=== PATIENT | female | born 1930 | race Caucasian/White ===

== ENCOUNTER 2016-09-23 21:10 | Emergency (ER) | payer MEDICARE, OTHER ==
--- NOTE | 2016-09-23 22:02 | CT ---
EXAM: NONCONTRAST HEAD CT 09/23/16 HISTORY: Fall. Contusion. COMPARISON: None. TECHNIQUE: Noncontrast head CT is performed in the axial plane. Sagittal and coronal reformatted images are sub mitted for interpretation. FINDINGS: Limited evaluation by motion degradation. Left frontal temporal scalp hematoma. Calvarium is intact. Adequate aeration of the sinuses and mastoid air cells. Cavernous carotid atherosclerosis. No parenchymal hemorrhage. No extra-axial hematoma. No midline shift. Prominence of the ventricular system, greater than expected for degree of atrophy. Correlate for nor mal pressure hydrocephalus. White matter hypodensities are presumed to be due to chronic small vesse l ischemic change. Transependymal flow of CSF could not be completely excluded. Grossly, cortical gr ay-white matter differentiation is preserved. IMPRESSION: 1. Scalp hematoma. No calvarial fracture. Prominence of the ventricular system, greater than ex pected for degree of atrophy. Correlate for normal pressure hydrocephalus. 2. White matter hypodensities which are presumed to be due to chronic small vessel ischemic patricia nge. Transependymal flow of CSF could not be completely excluded. 3. Limited evaluation due to motion degradation. POS: [facility]
--- NOTE | 2016-09-23 22:06 | CT ---
CERVICAL SPINE CT WITHOUT CONTRAST 09/23/16 HISTORY: Fall. Trauma. COMPARISON: None. TECHNIQUE: Cervical spine CT is performed without intravenous or intrathecal contrast. Reformatted images are s ubmitted for interpretation. The visualized soft tissue neck structures are unremarkable. Upper mediastinum is unremarkable. Righ t upper lobe blebs are noted. Associated nonspecific mild ground glass opacification is noted. There are varying degrees of central canal stenosis and foraminal narrowing on the basis of degenerative change. Limited evaluation by technique. Lateral masses of C1 and C2 articulate appropriately. Appropriate articulation of the intra-articula r facets. Odontoid process is intact. Fusion of the C3-C4 disc space likely on the basis of degenerative change. Additional multilevel deg enerative disc disease with loss of disc space height and osteophyte formation is noted. Vertebral b saloni heights are maintained. There is no fracture. No malalignment. No epidural hematoma or preverteb ral soft tissue swelling. IMPRESSION: No fracture. POS: [facility]
--- NOTE | 2016-09-23 22:08 | RAD ---
EXAM: ONE VIEW PELVIS 09/23/16 HISTORY: Fall. Pain. COMPARISON: None. FINDINGS: One view pelvis. Sacral ala appear to be unremarkable. Bony pelvis appears to be intact. Limited guerda luation of the left and right hips due to patient position. If there is concern, dedicated hip radio graph can be performed. There was mild loss of the left and right hip joint space height. IMPRESSION: 1. Intact bony pelvis. 2. Limited evaluation of the left and right hip. If there is concern, dedicated hip radiograph can be performed. POS: [facility]
--- NOTE | 2016-09-23 22:10 | RAD ---
EXAM: LEFT HIP TWO VIEWS 09/23/16 HISTORY: Fall. Pain. COMPARISON: None. FINDINGS: Both views of the left hip are essentially in AP projection. Based on the images provided, obvious f racture is not appreciated. Dedicated frogleg lateral view would be beneficial. IMPRESSION: No fracture on essentially an AP projection. Frogleg lateral view should be performed. POS: [facility]
--- NOTE | 2016-09-23 22:14 | RAD ---
EXAM: LEFT FOOT THREE VIEWS 09/23/16 HISTORY: Fall. Pain. COMPARISON: None. FINDINGS: Degenerative change of the navicular joint space. Small spur of the calcaneus at the plantar aponeur osis insertion site. Minimal hypertrophy at Achilles tendon insertion site. There is mid foot soft t issue swelling. Lisfranc alignment is maintained. No acute fractures. Joint spaces are preserved. Th ere is mild bone demineralization. IMPRESSION: Soft tissue swelling, without evidence of fracture. POS: [facility]
[2016-09-23 22:23] LABS: Hemoglobin 13.3 g/dL (12.0-16.0); Lymphocytes 1 % (21-51); MDiff Complete? YES; Macrocytosis SLIGHT = 6-15 cells (100X) (0-5/hpf); Mean Corpuscular HGB CONC 34.7 g/dL (32.0-36.0); Mean Corpuscular Hemoglobin 38.9 pg (27.0-31.0); Mean Platelet Volume 6.1 fL (7.4-10.4); Monocytes 3 % (0-10); Neutrophil 90 % (42-75); PLT Morphology Comment Appears Adequate; Platelet Count 266 thou/uL (130-400); RBC Distribution Width 14.6 % (11.5-14.5); Reactive Lymphocytes 6 % (0-10); Red Blood Cell (RBC) Count 3.43 mill/uL (4.20-5.40); White Blood Cell (WBC) Count 25.4 thou/uL (4.8-10.8)
[2016-09-23 22:31] LABS: Blood, Urine Negative (Negative); Glucose, Urine (Dipstick) 500 mg/dL (Negative); Leukocyte Negative (Negative); Nitrite Negative (Negative); Protein, Urine (Dipstick) 30 mg/dL (Neg-Trace)
[2016-09-23 22:31] LABS: ALT (SGPT) 13 U/L (0-55); AST (SGOT) 17 U/L (5-34); Albumin 3.9 g/dL (3.4-4.8); Alkaline Phosphatase 81 U/L (40-150); Anion Gap 21 mmol/L (10-20); BUN (Urea Nitrogen) 26 mg/dL (9.8-20.1); Bilirubin, Total 1.6 mg/dL (0.2-1.2); Calc. Creatinine Clearance 0 mL/min (70-130); Calcium 9.1 mg/dL (7.8-10.44); Carbon Dioxide 21 mmol/L (23-31); Chloride 101 mmol/L (98-107); Estimated GFR-MDRD 66; Globulin 2.4 g/dL (2.4-3.5); Glucose 350 mg/dL (83-110); Potassium 4.3 mmol/L (3.5-5.1); Protein, Total 6.3 g/dL (5.8-8.1); Sodium 139 mmol/L (136-145)
[2016-09-23 22:32] LABS: Clarity Hazy (Clear)
[2016-09-23 22:33] LABS: Specific Gravity, Urine 1.037 (1.002-1.036)
[2016-09-23 22:37] LABS: Bilirubin Negative (Negative); Icto Negative (Negative)
[2016-09-23 22:41] LABS: Bacteria/HPF 2+ HPF (None Seen); Crystals/HPF 3+ AMORPH URATES HPF (Negative); RBC/HPF 0-3 HPF (0-3); Squamous Epithelial 0-3 HPF (0-3); WBC/HPF 0-3 HPF (0-3)
== END 2016-09-23 23:53 | disposition home or self-care (01) ==
LOC: MADERS 21:10
DX: S01.81XA Laceration without foreign body of other part of head, initial encounter (principal); F03.90 Unspecified dementia, unspecified severity, without behavioral disturbance, psychotic disturbance, mood disturbance, and anxiety; E11.65 Type 2 diabetes mellitus with hyperglycemia; W19.XXXA Unspecified fall, initial encounter; Z79.4 Long term (current) use of insulin
CPT/HCPCS: 51701; 70450; 72125; 72170; 80053; 81003; 81015; 83880; 85025; 87086; A4353

== ENCOUNTER 2016-09-24 02:24 | Emergency (ER) | payer MEDICARE, OTHER ==
[2016-09-24] MEDS ORDERED: Insulin Regular 300 UNITS/3 ML VIAL ONE (03:20)
[2016-09-24 03:29] LABS: INR-International Normal Ratio 1.2; PTT 27.2 SEC (22.9-36.1)
[2016-09-24 03:31] LABS: D-Dimer Test 0.95 *mcg/mL (0.27-0.43)
[2016-09-24 03:41] LABS: ALT (SGPT) 15 U/L (0-55); AST (SGOT) 23 U/L (5-34); Alkaline Phosphatase 82 U/L (40-150); Anion Gap 22 mmol/L (10-20); BUN (Urea Nitrogen) 27 mg/dL (9.8-20.1); Bilirubin, Total 1.8 mg/dL (0.2-1.2); CK (CPK) 390 U/L (29-168); Calc. Creatinine Clearance 0 mL/min (70-130); Calcium 9.4 mg/dL (7.8-10.44); Carbon Dioxide 18 mmol/L (23-31); Chloride 102 mmol/L (98-107); Estimated GFR-MDRD 64; Globulin 2.6 g/dL (2.4-3.5); Glucose 393 mg/dL (83-110); Potassium 4.7 mmol/L (3.5-5.1); Protein, Total 6.6 g/dL (5.8-8.1); Sodium 137 mmol/L (136-145)
[2016-09-24 03:43] LABS: CKMB 6.3 ng/mL (0-6.6); Troponin I Less than 0.010 ng/mL (< 0.028)
[2016-09-24 03:55] LABS: #Basophils 0.1 thou/uL (0.0-0.2); #Lymphocytes 0.7 thou/uL (1.20-3.40); #Monocytes 0.3 thou/uL (0.11-0.59); #Neutrophils 20.6 thou/uL (1.40-6.50); %Basophils 0.3 % (0.0-1.0); %Eosinophils 0.1 % (0.0-10.0); %Lymphocytes 3.4 % (21.0-51.0); %Monocytes 1.3 % (0.0-10.0); Hemoglobin 13.6 g/dL (12.0-16.0); MDiff Complete? YES; Macrocytosis SLIGHT = 6-15 cells (100X) (0-5/hpf); Mean Corpuscular HGB CONC 35.4 g/dL (32.0-36.0); Mean Corpuscular Hemoglobin 39.1 pg (27.0-31.0); Mean Corpuscular Volume 110.2 fl (81.0-99.0); Mean Platelet Volume 6.2 fL (7.4-10.4); Platelet Count 252 thou/uL (130-400); RBC Distribution Width 14.4 % (11.5-14.5); Red Blood Cell (RBC) Count 3.49 mill/uL (4.20-5.40); White Blood Cell (WBC) Count 21.7 thou/uL (4.8-10.8)
[2016-09-24 04:13] LABS: Base Excess 4.6 mEq/L (-2 - +2)
[2016-09-24 04:14] LABS: Hemoglobin (Hb) 10.8 g/dL (11.7-16.1)
[2016-09-24] MEDS ORDERED: cefTRIAXone\\ROCEPHIN 1 GM VIAL ONE (05:53)
[2016-09-24] MEDS ORDERED: Sodium Chloride 0.9% 1,000 ML BAG ONE (07:27)
[2016-09-24] MEDS ORDERED: Sodium Chloride 0.9% 100 ML BAG ONE (07:27)
--- NOTE | 2016-09-24 08:58 | CT ---
PRELIMINARY REPORT/[facility]/EMERGENCY AFTER HOURS PROCEDURE: EXAM: CT Head Without Intravenous Contrast. CLINICAL HISTORY: 86 years old, female; Signs and symptoms; Coma or unconsciousness; Patient HX: Pt fell and hit head earlier and was discharged. When came back was unresponsive. TECHNIQUE: Axial computed tomography images of the head/brain without intravenous contrast. COMPARISON: No relevant prior studies available. FINDINGS: No definite or depressed skull fracture. Included paranasal sinuses are clear. No acute intracranial hemorrhage or mass effect. The lateral and third ventricles appear borderline to mildly enlarged for degree of atrophy. Possibility of communicating/normal pressure hydrocephalus should be considered. Please correlate cl inically. MRI could further evaluate, as clinically directed. There is relatively symmetrical decreased attenuation in the periventricular white matter, likely fr om microvascular disease. No definite acute infarct by CT. MRI could be more sensitive/specific for an acute infarct if clinically indicated. IMPRESSION: No acute intracranial hemorrhage or mass effect. Changes of microvascular disease. No definite acute infarct by CT, see above. The lateral and third ventricles appear borderline to mildly enlarged. Possibility of communicating/normal pressure hydrocephalus should be considered. MRI could further e valuate, as clinically directed. Thank you for allowing us to participate in the care of your patient. Dictated and Authenticated by: Garett Ortega MD 09/24/2016 3:20 AM Central Time ([place] \T\ [place]) FINAL REPORT HEAD CT WITHOUT CONTRAST: Date: 09/24/16 COMPARISON: 09/23/16. HISTORY: Unresponsive patient. FINDINGS: I agree with the preliminary report given by vRshab[facility]. The visualized paranasal sinuses/mastoid air cell s are well aerated. There is no displaced calvarial fracture. There is focal area of left frontal scalp swelling, consistent with recent head trauma. There is pro minent periventricular deep and subcortical white matter hypodensity, evidence of small vessel disea se. Lateral ventricles are enlarged, a stable finding. No intracranial hemorrhage, midline shift, or mass effect. IMPRESSION: 1. Stable head CT. No intracranial hemorrhage or displaced calvarial fracture. 2. Small vessel disease. 3. Ventriculomegaly as detailed above. POS: [facility]
--- NOTE | 2016-09-24 09:03 | CT ---
PRELIMINARY REPORT/[facility]/EMERGENCY AFTER HOURS PROCEDURE: EXAM: CT Angiography Chest With Intravenous Contrast. CLINICAL HISTORY: 86 years old, female; Signs and symptoms; Other: AMS, high d-dimer; Patient HX: Pt was seen earlier she fell. Pt went home went home came back unresponsive. AMS, high d-dimer R/O pe pt was uncoopertiv e TECHNIQUE: Axial computed tomographic angiography images of the chest with intravenous contrast using pulmonary embolism protocol. Oblique reformatted images were created and reviewed. CONTRAST: 100 mL of isovue administered intravenously. COMPARISON: No relevant prior studies available. FINDINGS: Pulmonary arteries: There is heterogeneous contrast attenuation of the subsegmental vessels to the l ower lobes bilaterally probably related to volume averaging at branching points. No central pulmonar y embolism. Aorta: The ascending thoracic aorta measures 4.4 cm. No dissection. Lungs: There is nonspecific groundglass opacification. There is 0.6 cm nodular density of (left uppe r) lobe, image 46 of series 2. Follow up as clinically indicated. Pleural space: Unremarkable. No significant effusion. No pneumothorax. Heart: Unremarkable. No cardiomegaly. No significant pericardial effusion. No evidence of RV dysfunc tion. Mediastinum: Small hiatal hernia. Bones/joints: No acute fracture. No dislocation. Soft tissues: Unremarkable. Lymph nodes: Unremarkable. No enlarged lymph nodes. IMPRESSION: No evidence for central pulmonary embolism. Heterogeneous contrast attenuation of the subsegmental v essels to the lower lobes probably related to volume averaging at branching points. Ectasia of ascending thoracic aorta. No dissection. 0.6 cm nodular density of (left upper) lobe. Follow up as clinically indicated. As per Fleischner Society guidelines for follow-up and management of pulmonary nodules: For patients at low risk (minimal or absent history of smoking and of other known risk factors), rec ommend initial follow-up chest CT at 6-12 months then at 18-24 months if no change. For patient at high risk (history of smoking or of other known risk factors), recommend initial foll ow-up chest CT at 3-6 months, then at 9-12 and 24 months if no change. Thank you for allowing us to participate in the care of your patient. Dictated and Authenticated by: Nissa Will DO 09/24/2016 5:47 AM Central Time ([place] \T\ [place]) FINAL REPORT CT PULMONARY ANGIOGRAM WITH IV CONTRAST AND 3D POSTPROCESSING: Date: 09/24/16 IMPRESSION: I agree with the preliminary report given by Dr. Nissa Will of [facility]. CODE [address]. POS: [facility]
[2016-09-24] MEDS ORDERED: Iopamidol 370 76% 125 ML VIAL FS ONE (11:34)
== END 2016-09-24 06:25 | disposition short-term general hospital (02) ==
LOC: MADERS 02:24
DX: A41.9 Sepsis, unspecified organism (principal); F03.90 Unspecified dementia, unspecified severity, without behavioral disturbance, psychotic disturbance, mood disturbance, and anxiety; E11.9 Type 2 diabetes mellitus without complications; E11.65 Type 2 diabetes mellitus with hyperglycemia
CPT/HCPCS: 36416; 70450; 71275; 80053; 82553; 82805; 83605; 83880; 84484; 85025; 85379; 85610; 85730; 87040; 87081; 87430; 93005; 94760; 96361; 96365; 96375; 36415-59; J0696; J1815; J3370; J7050

== ENCOUNTER 2016-10-19 18:16 | Emergency (ER) | payer MEDICARE ==
[~2016-10-19 18:16] MED LIST: Sodium Chloride 0.9% 1,000 ML BAG ONE; Sodium Chloride 0.9% 100 ML BAG ONE
[2016-10-19 19:03] LABS: Hemoglobin 11.3 g/dL (12.0-16.0); Mean Corpuscular Hemoglobin 34.6 pg (27.0-31.0); Red Blood Cell (RBC) Count 3.28 mill/uL (4.20-5.40)
[2016-10-19 19:04] LABS: Manual Diff?? YES; Mean Corpuscular HGB CONC 32.2 g/dL (32.0-36.0); Mean Platelet Volume 5.7 fL (7.4-10.4); Platelet Count 382 thou/uL (130-400); RBC Distribution Width 17.5 % (11.5-14.5)
[2016-10-19 19:09] LABS: ALT (SGPT) 21 U/L (0-55); AST (SGOT) 21 U/L (5-34); Albumin 2.9 g/dL (3.4-4.8); Alkaline Phosphatase 88 U/L (40-150); Anion Gap 15 mmol/L (10-20); BUN (Urea Nitrogen) 18 mg/dL (9.8-20.1); Calc. Creatinine Clearance 0 mL/min (70-130); Calcium 8.6 mg/dL (7.8-10.44); Carbon Dioxide 23 mmol/L (23-31); Chloride 102 mmol/L (98-107); Estimated GFR-MDRD 90; Globulin 2.7 g/dL (2.4-3.5); Glucose 305 mg/dL (83-110); Potassium 4.6 mmol/L (3.5-5.1); Protein, Total 5.6 g/dL (5.8-8.1); Sodium 135 mmol/L (136-145)
[2016-10-19 19:10] LABS: Band 6 % (5-11); Lymphocytes 7 % (21-51); Neutrophil 86 % (42-75)
[2016-10-19 19:11] LABS: Anisocytosis SLIGHT = 6-15 cells (100X) (0-5/hpf); Monocytes 1 % (0-10); PLT Morphology Comment Appears Adequate
[2016-10-19 19:12] LABS: MDiff Complete? YES
--- NOTE | 2016-10-19 19:28 | CT ---
CT BRAIN 10/19/16 HISTORY: Altered mental status. Comparison made to previous exam from 09/24/16. Noncontrast enhanced CT images of the brain demonstrate diffuse cortical atrophy and extensive deep white matter ischemic changes. No evidence of acute intracranial masses, hemorrhages or strokes seen . CT appearance is stable. IMPRESSION: Cortical atrophy and deep white matter ischemic changes. POS: [facility]
[2016-10-19] MEDS ORDERED: Acetaminophen 650 MG Suppository ONE (19:32)
[2016-10-19] MEDS ORDERED: Vancomycin HCl 500 MG VIAL ONE (19:32)
[2016-10-19] MEDS ORDERED: Cefepime 1 GM VIAL ONE (19:32)
[2016-10-19 19:34] LABS: Bilirubin Negative (Negative); Blood, Urine Negative (Negative); Clarity Clear (Clear); Glucose, Urine (Dipstick) 500 mg/dL (Negative); Leukocyte Negative (Negative); Nitrite Negative (Negative); Protein, Urine (Dipstick) 30 mg/dL (Neg-Trace); Specific Gravity, Urine 1.025 (1.005-1.030); pH, Urine 5.5 (5.0-9.0)
[2016-10-19 19:35] LABS: Bacteria/HPF 1+ HPF (None Seen); RBC/HPF 0-3 HPF (0-3); Squamous Epithelial 0-3 HPF (0-3); WBC/HPF 0-3 HPF (0-3)
--- NOTE | 2016-10-19 19:45 | CT ---
NONCONTRAST ENHANCED CT CHEST 10/19/16 HISTORY: Cough. Noncontrast enhanced CT of the chest is obtained. There is a gastrostomy tube in place. There is air space opacity seen in both lung bases, compatible with bibasilar pneumonia worst on the left than o n the right. Some mild pretracheal lymphadenopathy also is seen. IMPRESSION: Bilateral lung base areas of air space opacities concerning for pneumonia. POS: [facility]
== END 2016-10-19 20:13 | disposition short-term general hospital (02) ==
LOC: MADERS 18:16
DX: A41.9 Sepsis, unspecified organism (principal); E03.9 Hypothyroidism, unspecified; I10 Essential (primary) hypertension; F41.9 Anxiety disorder, unspecified; E11.9 Type 2 diabetes mellitus without complications; Z86.73 Personal history of transient ischemic attack (TIA), and cerebral infarction without residual deficits
CPT/HCPCS: 51701; 70450; 71250; 80053; 81003; 81015; 83605; 85025; 87040; 87086; 87149; 96361; 96365; A4353; J0692; J3370; J7050